=== PATIENT | female | born 1945 | race American Indian/Alaskan Native ===

== ENCOUNTER 2017-07-17 09:10 | Outpatient (CLI) | payer MEDICARE ==
--- NOTE | 2017-07-17 09:51 | Mammography Report ---
Screening mammogram: Routine views are compared to prior exam in 2016. The patient has a diffusely distributed moderate density fibroglandular pattern which is somewhat nodular bilaterally. In the right CC view central breast there is a discrete nodular area which I do not identify on prior exam. This is not identified in the lateral projection as excrete finding. The remainder of the breast pattern appears essentially unchanged bilaterally. CAD used. Impression: Right asymmetry. Recommendation: Compression imaging of the right breast. Ultrasound, if needed. BI-RADS CATEGORY: 0 = Needs additional imaging evaluation ACR BI-RADS MAMMOGRAPHIC CODES: 0 = Needs additional imaging evaluation; 1 = Negative; 2 = Benign; 3 = Probably benign; 4 = Suspicious; 5 = Malignant; 6 = Known biopsy-proven malignancy COMMENT: 1. Dense breast tissue, i.e., adenosis, fibrocystic changes, etc., may obscure an underlying neoplasm. 2. Approximately 10% of cancers are not detected with mammography. 3. A negative mammography report should not delay biopsy if a clinically suspicious mass is present.
== END 2017-07-17 09:11 | disposition home or self-care (01) ==
LOC: MAMMO 09:10 → EDBD 09:10 → MAMMO 09:11
DX: Z12.31 Encounter for screening mammogram for malignant neoplasm of breast (principal)
CPT/HCPCS: 77067